=== PATIENT | female | born 1955 | race Caucasian/White ===

== ENCOUNTER 2016-10-25 07:59 | Observation (INO) | payer OTHER ==
[2016-10-19 18:25] LABS: BASOPHILS 0.9 %; BASOPHILS ABSOLUTE 0.09 10/3/uL (0.0-0.16); EOSINOPHILS 3.8 %; EOSINOPHILS ABSOLUTE 0.36 10/3/uL (0.0-0.53); HEMATOCRIT 44.4 % (36.0-48.0); HEMOGLOBIN 14.7 g/dL (12.0-16.0); IMMATURE GRANULOCYTES 0.2 %; IMMATURE GRANULOCYTES ABSOLUTE 0.02 10/3/uL (0.0-0.11); LYMPHOCYTES 26.2 %; LYMPHOCYTES ABSOLUTE 2.49 10/3/uL (0.67-4.30); MEAN CORPUS HGB CONC 33.1 g/dL (32.0-36.0); MEAN CORPUSCULAR HEMOGLOB 30.8 pg (26.0-34.0); MEAN CORPUSCULAR VOLUME 93.1 fL (80-100); MEAN PLATELET VOLUME 10.6 fL (9.2-13.0); MONOCYTES 5.6 %; MONOCYTES ABSOLUTE 0.53 10/3/uL (0.21-1.20); NEUTROPHILS 63.3 %; NEUTROPHILS ABSOLUTE 6.03 10/3/uL (2.02-8.40); PLATELET COUNT 353 10/3/uL (150-400); RBC DISTRIBUTION WIDTH 14.3 % (12.0-16.0); RED CELL COUNT 4.77 10/6/uL (4.0-5.6); WHITE BLOOD CELLS 9.5 10/3/uL (4.5-10.5)
[2016-10-19 18:27] LABS: MANUAL DIFF NO %
[2016-10-19 18:34] LABS: A/G RATIO 1.4 (0.7-1.9); ALBUMIN 4.1 G/DL (3.5-5.0); ALKALINE PHOSPHATASE 125 U/L (45-117); BUN (BLOOD UREA NITROGEN) 13 MG/DL (6-23); CALCIUM, SERUM 9.4 MG/DL (8.5-10.4); CHLORIDE, SERUM 105 MMOL/L (96-112); CO2 (CARBON DIOXIDE) 26 MMOL/L (24-34); CREATININE 0.89 MG/DL (0.55-1.02); GFR AFRICAN AMERICAN 81 ML/MIN (>=60); GFR NON AFRICAN AMERICAN 69 ML/MIN (>=60); GLUCOSE, SERUM 83 MG/DL (60-99); POTASSIUM, SERUM 4.3 MMOL/L (3.5-5.3); SGOT(AST) 24 U/L (5-40); SGPT(ALT) 27 U/L (5-65); SODIUM, SERUM 141 MMOL/L (135-148); TOTAL BILIRUBIN 0.6 MG/DL (0-1.2); TOTAL PROTEIN 7.1 G/DL (6.0-8.5)
--- NOTE | ~2016-10-25 | OP ---
Record Of Operation [facility] [address] [place]. [address] NAME: ROXANA DHALIWAL : 53 STATUS : ADM Umm PAT#: [id number] AGE: 61 ADM/REG DATE : 10/25/16 MR#: [id number] REPORT SERV DATE: 10/25/16 DICTATED BY: SHANEKA VIVAR III DATE: 10/25/16 REPORT STATUS : Draft TRANSCRIBED BY: MODL DATE: 10/25/16 DATE OF PROCEDURE: 10/25/2016 PREOPERATIVE DIAGNOSIS: Symptomatic recurrent incarcerated incisional hernia. POSTOPERATIVE DIAGNOSIS: Symptomatic recurrent incarcerated incisional hernia. PROCEDURE: Repair of symptomatic recurrent incarcerated incisional hernia. SURGEON: Shaneka Vivar M.D. ANESTHESIA: General with intubation. COMPLICATIONS: None. ESTIMATED BLOOD LOSS: Less than 5 mL. SPECIMENS: Hernia sac. DRAINS: Regino-Hernandez in subcutaneous tissue. LAP AND SPONGE COUNT: Correct x3. HISTORY: This 61-year-old female presented with a symptomatic chronic incarcerated recurrent incisional hernia. This is located several centimeters above the navel. It was felt that open repair of this hernia was indicated. This procedure, the risks, benefits, and alternatives, including but not limited to the risk for bleeding, infection, enterotomy, injury to any abdominal structure, postop small bowel obstruction, ileus, recurrence of the hernia, seroma formation, hematoma formation, infection of the mesh, or enterocutaneous fistula requiring removal of the mesh, and unforeseen complications including deep venous thrombosis, pulmonary embolus, myocardial infarction, stroke, pneumonia, and were fully explained to the patient prior to the surgery. The fact this was a major operation with risk for major morbidity and mortality had been explained. The expected length of the recovery was explained. The patient had questions, which were answered. She understood the risks and agreed to the surgery as planned. It should be noted, this procedure was performed with Prolene ventral patch mesh. DESCRIPTION OF PROCEDURE: After being properly identified, and after discussing the risks and benefits of the surgery with the patient and family again in the preoperative area, and after identifying the hernia with her in the preoperative area, the patient was taken to the operating room, and placed in the supine position on the operating room table. General anesthesia was administered, and she was intubated without difficulty. The abdomen was prepped and draped sterilely in the usual fashion. After an appropriate "time-out" per [facility] standards, a midline incision was made in the midline of the abdomen, several centimeters above the umbilicus, directly over the hernia. The incision was continued Record Of Operation [facility] [address] [place]. [address] NAME: ROXANA DHALIWAL : 53 STATUS : ADM Umm PAT#: [id number] AGE: 61 ADM/REG DATE : 10/25/16 MR#: [id number] REPORT SERV DATE: 10/25/16 DICTATED BY: SHANEKA VIVAR III DATE: 10/25/16 REPORT STATUS : Draft TRANSCRIBED BY: MODL DATE: 10/25/16 through subcutaneous tissue. Hemostasis was controlled with the cautery. The incision was continued down to the fascia. The fascial defect was identified. There was preperitoneal fat and omentum chronically incarcerated within this. Using sharp dissection, the skin and subcutaneous tissue around the defect anteriorly were fully mobilized. The omentum was then serially divided between the Danilo clamps, cutting and tying with 2-0 silk sutures. This portion of the omentum or preperitoneal fat and the hernia sac were thus excised and removed, and sent for permanent pathology. The underside of the fascia was inspected to be certain that there was no bowel beneath this. Hemostasis was assured. The fascial defect was about 3 cm in size. We selected a Prolene patch mesh. This was placed beneath the fascia in an underlay fashion. This was secured around the edges of the defect with interrupted 0 Prolene sutures. Finally, the fascia was closed over the patch with interrupted #1 Prolene sutures. The fascia came together nicely with no tension. Hemostasis was assured. A Regino-Hernandez drain was brought through a separate stab wound, placed in the subcutaneous tissue. The subcutaneous tissue was closed with a running 3-0 chromic suture. The skin was closed with a running subcuticular 4-0 Monocryl stitch. The incision was injected with 0.5% Marcaine. Dressings were applied. Anesthesia was reversed, and the patient was taken to the recovery room in stable condition. She tolerated the procedure well. Her family was informed the results of the surgery. The patient will be admitted to the hospital for postoperative care and for pain management. RHJ/MODL Shaneka Vivar III, M.D. / [id number] CC: Shaneka Vivar III, M.D.
--- NOTE | ~2016-10-25 | PREOPHP ---
PreOp History and Physical [address] [place]. [address] NAME: ROXANA DHALIWAL : 53 STATUS : REG [facility] PAT#: [id number] AGE: 61 ADM/REG DATE : 10/25/16 MR#: [id number] REPORT SERV DATE: 10/25/16 DICTATED BY: SHANEKA VIVAR III DATE: 10/09/16 REPORT STATUS : Draft TRANSCRIBED BY: MODL DATE: 10/09/16 HISTORY OF PRESENT ILLNESS: This 61-year-old female comes to the operating room for open repair of symptomatic recurrent chronically incarcerated incisional hernia. The patient complains of mid abdominal pain which began one year ago. She has an abdominal bulge which is thought to be an incarcerated hernia. She comes now for repair of this hernia. The patient had no nausea, vomiting, or obstructive symptoms. The patient has a complicated surgical history of multiple previous abdominal operations. She comes now for open repair of this recurrent incarcerated incisional hernia which will likely require bilateral component separation. PAST MEDICAL HISTORY: 1. Gastroesophageal reflux disease. 2. Hypertension. 3. Obesity. ALLERGIES: BUPRENORPHINE, MORPHINE, LORCET, DEMEROL. MEDICATIONS: Losartan, pantoprazole, Singulair, topiramate. PAST SURGICAL HISTORY: Includes section, colon resection with colostomy, colostomy closure, and three further operations including incisional hernia repair with mesh. FAMILY HISTORY: Positive for heart disease, hypertension, and melanoma. SOCIAL HISTORY: No history of tobacco or alcohol use. REVIEW OF SYSTEMS: The patient's 14-point review of system is otherwise unremarkable except for pain related to this bulge. OBJECTIVE PHYSICAL EXAM: GENERAL: An obese female, in no acute distress. She is alert and oriented x3. VITAL SIGNS: Blood pressure 140/83, pulse 90, temp 97.8. HEENT: Unremarkable. Cranial nerves II through XII are normal. LUNGS: Clear. CARDIAC: Normal. ABDOMEN: Soft with a chronic incarcerated incisional hernia located above the navel in the midline. EXTREMITIES: Normal. ASSESSMENT: A 61-year-old female with: 1. Symptomatic chronic recurrent incarcerated incisional hernia. 2. History of previous incisional hernia repair in the past. PreOp History and Physical [address] [address] NAME: ROXANA DHALIWAL : 53 STATUS : REG [facility] PAT#: [id number] AGE: 61 ADM/REG DATE : 10/25/16 MR#: [id number] REPORT SERV DATE: 10/25/16 DICTATED BY: SHANEKA VIVAR III DATE: 10/09/16 REPORT STATUS : Draft TRANSCRIBED BY: PANCHO DATE: 10/09/16 3. History of colectomy with colostomy in the past. 4. History of section. 5. Obesity. 6. Hypertension. 7. Gastroesophageal reflux disease. PLAN: The patient comes to the operating room now for repair of this recurrent chronically incarcerated incisional hernia. This procedure, the risks, benefits, and alternatives, including not limited to the risk for bleeding, infection, enterotomy, injury to abdominal structure, postop small bowel obstruction, ileus, seroma formation, hematoma formation, recurrence of the hernia, infection of the mesh or enterocutaneous fistula requiring removal of the mesh, and unforeseen complications including deep venous thrombosis, pulmonary embolus, myocardial infarction, stroke, pneumonia, and , have been explained the patient prior to surgery. The fact that this is a major operation with the risk for major morbidity and mortality has been explained. Expected length of recovery has been explained. The high likelihood of recurrence of the hernia and wound complications including infection of mesh because of her obesity and multiple previous abdominal operations has been explained. The patient's questions have been answered. She clearly understands the risks and agrees to surgery as planned. ROSHAN/PANCHO Shaneka Vivar III, M.D. / [id number]
[~2016-10-25 07:59] MED LIST: ACET500CAP PO; ASMANEX INHALER INH; COZ50 PO; IBU-200200 MG PO; PROTONIX PO; ROB1T PO; SINGULAIR1 PO; TOPAMAX100 PO
[2016-10-26 06:18] LABS: BASOPHILS 0.4 %; BASOPHILS ABSOLUTE 0.03 10/3/uL (0.0-0.16); EOSINOPHILS 3.8 %; EOSINOPHILS ABSOLUTE 0.32 10/3/uL (0.0-0.53); HEMOGLOBIN 12.8 g/dL (12.0-16.0); IMMATURE GRANULOCYTES 0.1 %; IMMATURE GRANULOCYTES ABSOLUTE 0.01 10/3/uL (0.0-0.11); LYMPHOCYTES 18.7 %; LYMPHOCYTES ABSOLUTE 1.57 10/3/uL (0.67-4.30); MEAN CORPUSCULAR HEMOGLOB 30.5 pg (26.0-34.0); MEAN CORPUSCULAR VOLUME 92.4 fL (80-100); MEAN PLATELET VOLUME 10.1 fL (9.2-13.0); MONOCYTES 7.1 %; NEUTROPHILS 69.9 %; NEUTROPHILS ABSOLUTE 5.88 10/3/uL (2.02-8.40); PLATELET COUNT 281 10/3/uL (150-400); RBC DISTRIBUTION WIDTH 14.1 % (12.0-16.0); WHITE BLOOD CELLS 8.4 10/3/uL (4.5-10.5)
[2016-10-26 06:23] LABS: HEMATOCRIT 38.8 % (36.0-48.0); MANUAL DIFF NO %
[2016-10-26 06:37] LABS: BUN (BLOOD UREA NITROGEN) 13 MG/DL (6-23); CALCIUM, SERUM 8.5 MG/DL (8.5-10.4); CHLORIDE, SERUM 109 MMOL/L (96-112); CO2 (CARBON DIOXIDE) 23 MMOL/L (24-34); CREATININE 1.02 MG/DL (0.55-1.02); GFR AFRICAN AMERICAN 68 ML/MIN (>=60); GFR NON AFRICAN AMERICAN 59 ML/MIN (>=60); POTASSIUM, SERUM 4.1 MMOL/L (3.5-5.3); SODIUM, SERUM 140 MMOL/L (135-148)
[2016-10-26 06:38] LABS: GLUCOSE, SERUM 102 MG/DL (60-99)
[2016-10-26] MEDS ORDERED: PERCOCET 7.5/321 TAB PO (08:38)
== END 2016-10-26 15:27 | disposition home or self-care (01) ==
LOC: SDC 07:59 → SDC/OF 12:20 → 5SO 13:05
PROVIDERS: Surgery
PROC: 0WUF0JZ Supplement Abdominal Wall with Synthetic Substitute, Open Approach (ICD-10-PCS; principal; 2016-10-25 11:15)
DX: K43.0 Incisional hernia with obstruction, without gangrene (principal); K21.9 Gastro-esophageal reflux disease without esophagitis; I10 Essential (primary) hypertension; E78.5 Hyperlipidemia, unspecified; E03.9 Hypothyroidism, unspecified; Z68.36 Body mass index [BMI] 36.0-36.9, adult; Z88.1 Allergy status to other antibiotic agents; Z88.5 Allergy status to narcotic agent; Z88.8 Allergy status to other drugs, medicaments and biological substances; Z93.3 Colostomy status; Z98.890 Other specified postprocedural states; Z90.49 Acquired absence of other specified parts of digestive tract
CPT/HCPCS: 36415; 71020-PO; 80048; 80053; 85025; 87641; 88302; 93005; 96372; 96374; 96375; 96376; A9270-GY; C1781; G0378; J0690; J1885; J2250; J2405; J2710; J3010